=== PATIENT | male | born 1950 | race Caucasian/White ===

== ENCOUNTER → 2020-08-07 | Outpatient (CLI) | payer OTHER | LOC: SJCVCIMAG 09:11 | PROVIDERS: ATTEND Internal Medicine | DX: I08.8 Other rheumatic multiple valve diseases (principal); R06.00 Dyspnea, unspecified; R53.83 Other fatigue; R01.1 Cardiac murmur, unspecified; Z79.899 Other long term (current) drug therapy ==

== ENCOUNTER → 2020-08-29 | Outpatient (CLI) | payer OTHER ==
[~2020-08-29] VITALS: Ht 172.7 cm; Wt 82.7 kg
[~2020-08-29] MED LIST: BETA-SITOSTEROL PO; BUTALBIT-ACETA1 EACH PO; CYTOMEL 5MCG TA5 MCG PO; IBU-200200 MG PO; L-METHYLFOLATE15 M1 PO; METHOCARBAMOL750 MG PO; NIACINAMIDE500 MG PO; SAW PALMETTO450 MG PO; SILDENAFIL CITR50 MG PO; TURMERIC500 M2 PO; VITAMIN B-121000 MC2 SUBLING; VITAMIN C500 M2 PO; VITAMIN D310 MC2 PO
[2020-08-29 07:26] VITALS: BP 110/70
--- NOTE | 2020-08-29 09:28 | TEE ---
[facility] [place] [address] TRANSESOPHAGEAL ECHOCARDIOGRAM Name: STERLINGJEANNINE MIDDLETON Room #: REG [facility] RichieLeny#: [id number] Admission: 08/29/20 Attend Phys: Thanh Hammonds MD, Discharge: Date of : 52 Report #: [id number] THIS REPORT FOR: cc: Jeannine Christensen MD, Douglas MD Lundgren,Thanh Carney MD [facility] ~ APPROVED REPORT Study performed: 08/29/2020 07:46:04 EXAM: Comprehensive 2D, Doppler, and color-flow Echocardiogram Patient Location: [facility] Room #: 9 Status: routine BSA: 1.96 Rhythm: NSR Other Information Study Quality: Good Indications Mitral Valve Disease Mitral Valve Prolapse Procedure After obtaining informed consent, patient underwent transesophageal echo in the [employer]. Type of Sedation : Conscious Sedation Sedation was administered by RN. Sedation start time: 0800 Case end Time: 812 Versed () Fentanyl () Transesophageal probe was inserted and advanced into esophagus without difficulty by Thanh Hammonds MD. The HILDA was performed without complications. Throughout the procedure, the blood pressure, pulse oximetry, cardiac rhythm, and rate were monitored. The patient tolerated the procedure without adverse effects. Recovery from conscious sedation was uneventful and vital signs were stable. Left Ventricle The left ventricle is normal size. There is normal LV segmental wall [facility] [address] [place] [address] TRANSESOPHAGEAL ECHOCARDIOGRAM Name: STERLINGJEANNINE EMI Room #: REG CL Teresa#: [id number] Admission: 08/29/20 Attend Phys: Thanh Hammonds, Discharge: Date of : 52 Report #: [id number] motion. There is normal left ventricular wall thickness. The left ventricular systolic function is normal. The left ventricular ejection fraction is within the normal range. LVEF is 60%. Right Ventricle The right ventricle is normal size. The right ventricular systolic function is normal. Atria The left atrium size is normal. No thrombus is visualized in the left atrium or appendage. No shunting by contrast bubble injection The right atrium size is normal. Aortic Valve The aortic valve is normal in structure. No aortic regurgitation is present. There is no aortic valvular stenosis. 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 No evidence of mitral valve stenosis. Tricuspid Valve The tricuspid valve is normal in structure. There is no tricuspid valve regurgitation noted. Pulmonic Valve The pulmonary valve is normal in structure. Trace pulmonic regurgitation. Great Vessels The aortic root is normal in size. The ascending aorta is normal in size. IVC is normal in size and collapses >50% with inspiration. Pericardium There is no pericardial effusion. <Conclusion> The left ventricular systolic function is normal. There is normal LV segmental wall motion. LVEF is 60%. No thrombus is visualized in the left atrium or appendage. No shunting by contrast bubble injection The aortic valve is normal in structure. No aortic regurgitation or stenosis. 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 There is no pericardial effusion. <ELECTRONICALLY SIGNED> By: Thanh Hammonds MD, [facility] 08/29/20927 7 7 Thanh Hammonds MD, [facility] /INF
== END | disposition home or self-care (01) ==
LOC: CATH 06:19
PROVIDERS: ATTEND Internal Medicine
DX: I34.1 Nonrheumatic mitral (valve) prolapse (principal); E78.5 Hyperlipidemia, unspecified; Z98.890 Other specified postprocedural states; Z79.899 Other long term (current) drug therapy; Z82.49 Family history of ischemic heart disease and other diseases of the circulatory system; Z88.0 Allergy status to penicillin

== ENCOUNTER → 2020-09-19 | Outpatient (CLI) | payer OTHER ==
[~2020-09-19] VITALS: Ht 172.7 cm; Wt 79.4 kg
[2020-09-19 07:15] VITALS: BP 117/73
--- NOTE | 2020-09-19 13:12 | CATHLAB ---
[facility] [place] [address] INVASIVE PROCEDURE REPORT Name: JEANNINE KATZ Room #: REG NICHOLE QuirozLeny#: [id number] Admission: 09/19/20 Attend Phys: Thanh Hammonds MD, Discharge: Date of : 52 Report #: [id number] THIS REPORT FOR: cc: Jeannine Christensen MD, Douglas MD Lundgren, Craig H. MD [facility] ~ APPROVED REPORT Study performed: 09/19/2020 07:51:24 Patient Details Patient Status: Out-Patient Room #: The patient is a 69 year-old male Event Personnel Thanh Hammonds Airport Clerk, Santhosh López RN RN, Leatha Xavier RTR, SAMUEL Scrub, Laverne Carpenter RTR Scrub, Darline Vela Monitor Procedures Performed Art Access - R femoral artery* Left Heart Cath w/or w/o Coronaries [id number] [facility] Hemostasis w/ Mynx Indication Chest pain Procedure Narrative The patient was brought electively to the Cardiac Catheterization Laboratory and was prepped and draped in a sterile manner. The Right Groin^ was infiltrated with 1% Lidocaine subcutaneous anesthesia. A PINNACLE 6FR Sheath #[id number] sheath was inserted into the . Coronary angiography was performed using coronary diagnostic catheters. The right coronary system was accessed and visualized with a JR4 catheter. The left coronary system was accessed and visualized with a JL4 catheter. The left ventricle was accessed and visualized with a ANGLE PIG catheter. The patient tolerated the procedure well and there were no complications associated with the procedure. There was no hematoma. Intraoperative Conscious Sedation Sedation start time: 808 Case end Time: 845 Fentanyl 50 mcg Versed 1 mg [facility] [address] [place] [address] INVASIVE PROCEDURE REPORT Name: JEANNINE KATZ Room #: REG [facility]#: [id number] Admission: 09/19/20 Attend Phys: Thanh Hammonds, Discharge: Date of : 52 Report #: [id number] Fluoro Time: 1.15 minutes Dose: DAP 2366.30 cGycm2 268 mGy Contrast Type and Amount: Omnipaque 115 ml Coronary Angiography The patient's coronary anatomy is right dominant. Diagnostic Cath Left Main Normal left main LAD 70% mid LAD stenosis Diagonal 1 Small first diagonal, angiographically normal Diagonal 2 Small second diagonal, angiographically normal Circumflex Large but nondominant circumflex. Angiographically normal circumflex OM1 Normal OM1 OM2 Normal OM 2 Right Coronary Dominant right coronary, angiographically normal R PDA Small posterior descending, angiographically normal RPLV Large posterior lateral branch, normal Left Ventriculography The left ventricle is normal in size with normal contractility. The left ventricular ejection fraction is estimated to be 55-60%. Left ventricular wall motion abnormalities are not present. Hemodynamics The aortic pressure is 116/55 mmHg with a mean of 82 mmHg. The left ventricular pressure is 161/-9 mmHg with a mean of mmHg. The left ventricular end diastolic pressure is 20 mmHg. Conclusion 1. Normal global and regional left ventricular systolic function. EF 55-60% 2. Normal left main 3. 70% mid LAD stenosis 4. Normal circumflex and right coronary arteries. Right coronary dominant circulation <ELECTRONICALLY SIGNED> By: Thanh Hammonds MD, FACC 09/19/201310 10 10 Thanh Hammonds MD, FACC /INF
== END | disposition home or self-care (01) ==
LOC: CATH 06:28
PROVIDERS: ATTEND Internal Medicine
DX: R07.9 Chest pain, unspecified (principal); I25.10 Atherosclerotic heart disease of native coronary artery without angina pectoris; I50.9 Heart failure, unspecified; E78.5 Hyperlipidemia, unspecified; K21.9 Gastro-esophageal reflux disease without esophagitis; M19.90 Unspecified osteoarthritis, unspecified site; G43.909 Migraine, unspecified, not intractable, without status migrainosus; I42.9 Cardiomyopathy, unspecified; Z98.890 Other specified postprocedural states; Z79.899 Other long term (current) drug therapy; Z79.01 Long term (current) use of anticoagulants

== ENCOUNTER → 2020-12-15 | Outpatient (CLI) | payer OTHER | LOC: SJCVC 11:07 | PROVIDERS: ATTEND Internal Medicine | DX: I25.10 Atherosclerotic heart disease of native coronary artery without angina pectoris (principal); I34.0 Nonrheumatic mitral (valve) insufficiency; E78.5 Hyperlipidemia, unspecified; Z95.5 Presence of coronary angioplasty implant and graft; Z82.49 Family history of ischemic heart disease and other diseases of the circulatory system; Z72.89 Other problems related to lifestyle; Z88.0 Allergy status to penicillin; Z98.890 Other specified postprocedural states; Z79.82 Long term (current) use of aspirin; Z79.899 Other long term (current) drug therapy ==

== ENCOUNTER → 2021-01-26 | Outpatient (CLI) | payer OTHER | LOC: SJCVCIMAG 08:40 | PROVIDERS: ATTEND Internal Medicine | DX: I07.1 Rheumatic tricuspid insufficiency (principal); I25.10 Atherosclerotic heart disease of native coronary artery without angina pectoris ==